=== PATIENT | female | born 1965 | race Caucasian/White ===

== ENCOUNTER → 2023-02-01 12:48 | Outpatient (BNVA) | payer OTHER, SELFPAY | PROVIDERS: PCP Internal Medicine; Visit Provider Neurological Surgery ==

== ENCOUNTER 2023-02-11 09:41 | Outpatient (REF) | payer OTHER, SELFPAY ==
--- NOTE | ~2023-02-11 | MR_ITS ---
EXAMINATION: MR LUMBAR SPINE WITHOUT CONTRAST CLINICAL INFORMATION: Neurogenic claudication COMPARISON: None TECHNIQUE: MRI of the lumbar spine was obtained using routine sequences without contrast. FINDINGS: Normal lumbar lordosis is preserved. Grade 1 anterolisthesis at L4-L5. Vertebral body heights are maintained. There is no suspicious osseous lesion. Multilevel disc desiccation with up to moderate disc height loss at L2-L3, where there are endplate Schmorl's nodes and type I Modic endplate change. Milder type I Modic endplate change at L3-L4 and L4-L5. Minor anterior osteophytic spurring is seen. Congenital spinal canal stenosis with crowding/prominence of epidural fat and superimposed degenerative changes with level by level detail as follows: T12-L1: Annular disc bulge with broad-based left central disc protrusion and mild bilateral facet arthrosis. Mild spinal canal narrowing without significant neural foraminal stenosis. L1-L2: Shallow annular disc bulge with mild bilateral facet arthrosis and ligamentum flavum thickening. No spinal canal or neural foraminal stenosis. L2-L3: Annular disc bulge with left greater than right foraminal disc protrusions, mild bilateral facet arthrosis and ligament flavum thickening and prominent/crowding of the epidural fat. Moderate spinal canal stenosis. Mild left greater than right neural foraminal stenosis. L3-L4: Annular disc bulge with advanced bilateral facet arthrosis and ligamentum flavum thickening and facet joint effusions with borderline diastasis which may reflect chronic hypermobility and can be correlated with flexion-extension views. Degenerative marrow edema/cystic change, more pronounced on the left. Severe spinal canal and subarticular zone narrowing with mass effect along the cauda equina including traversing L4 nerve roots. Moderate left and [id number]-[id number] right neural foraminal stenosis. L4-L5: Advanced bilateral facet arthrosis with ligamentum flavum thickening, small bilateral facet joint effusions with borderline diastasis which may reflect chronic hypermobility and can be correlated with flexion-extension views. Posterior disc uncovering/pseudodisc bulge. Severe spinal canal and subarticular zone stenosis with mass effect along the cauda equina, including traversing L5 nerve roots. Mild bilateral neural foraminal stenosis. L5-S1: Epidural lipomatosis mildly effaces the thecal sac. Shallow annular disc bulge with right far lateral disc osteophyte and bilateral facet arthrosis. No neural foraminal stenosis. The conus medullaris terminates at the level of L1-L2. The distal spinal cord is normal in appearance. Redundancy of the cauda equina nerve roots at L1-L2 related to multilevel high-grade spinal canal stenosis. No epidural fluid collection, hematoma, or mass. Several sacral Tarlov cysts. There is mild fatty atrophy of the paraspinal musculature. Splenomegaly measuring 12 cm. The abdominal aorta is of normal contour and caliber. MR/MR lumbar spine wo con IMPRESSION: 1. Congenital spinal canal stenosis with chronic/prominence of the epidural fat and superimposed spondylosis. Severe spinal canal stenosis at L3-L4 and L4-L5 with mass effect along the cauda equina including traversing L4 and L5 nerve roots and moderate spinal canal stenosis at L2-L3. Moderate left and [id number]-[id number] right neural foraminal stenosis at L3-L4. 2. Advanced facet arthrosis at L3-L4 and L4-L5 with joint effusions and borderline diastasis which may reflect chronic hypermobility and can be correlated with flexion-extension views. 3. Splenomegaly.
--- NOTE | ~2023-02-11 | MR_ITS ---
EXAMINATION: MR CERVICAL SPINE WITHOUT CONTRAST CLINICAL INFORMATION: Spondylosis with myelopathy, cervical region. The patient states neck pain. COMPARISON: There are no prior studies available for comparison at time of dictation. TECHNIQUE: MRI of the cervical spine was obtained using routine sequences without contrast. FINDINGS: VERTEBRAL BODIES AND PARASPINAL SOFT TISSUES: There is a mild levoscoliosis. There is reversal of the cervical lordosis in the mid cervical region, and there is a mild anterolisthesis of C3 on C4. There are sequelae of multilevel ACDF changes from C3 through C6, not well evaluated due to susceptibility artifact from the hardware. There is marked narrowing of intervertebral disc height at C6-C7 there are degenerative endplate contour changes with fatty endplate signal at this level. No compression fractures are demonstrated. Overall, marrow signal is homogenous. Accounting for artifact, the paravertebral structures are unremarkable. CERVICOMEDULLARY JUNCTION AND VISUALIZED POSTERIOR FOSSA: The craniocervical and posterior fossa structures are normal. Accounting for artifact, spinal cord signal appears normal. SPINAL LEVELS: C2-C3: There is mild bilateral facet arthropathy. There is a shallow broad-based posterior disc protrusion without cord compression or central stenosis. There are uncovertebral osteophytes and there is mild bilateral foraminal narrowing. C3-C4: There is mild right facet arthropathy. There is mild unroofing of the disc as a result of the anterolisthesis but there is no central stenosis or cord compression. The neural foramina are patent bilaterally. C4-C5: There is mild bilateral facet arthropathy. The broad-based posterior disc protrusion which effaces CSF around the cord with minimal flattening the cord. There is moderate central stenosis. There is moderate bilateral foraminal narrowing. C5-C6: The facet joints appear normal. There is a small right paracentral osteophytic spur without definite impingement on the spinal cord. There is no central stenosis or cord compression. There are uncovertebral osteophytes and there is mild bilateral foraminal narrowing. C6-C7: The facet joints appear normal. There is a broad-based posterior disc osteophyte complex which is most prominent on the left extending into the left neural foramen, and there is moderate to severe foraminal narrowing on the left. Mild foraminal stenosis is noted on the right. There is no spinal cord compression, but there is effacement of CSF around the cord and there is mild central stenosis. C7-T1: There is mild left facet arthropathy. There is a small left-sided disc osteophyte complex extending into the left neural foramen with mild foraminal narrowing. There is no central stenosis or cord compression. T1-T2: There is a broad-based posterior disc protrusion which is focally more prominent in the midline. There is no cord compression or central stenosis. The neural foramina are patent bilaterally. MR/MR cervical spine wo con IMPRESSION: 1. There are sequelae of multilevel ACDF procedures between C3 and C6. 2. At C6-C7 there is a broad-based posterior disc osteophyte complex which is most prominent on the left extending into the left neural foramen. There is moderate to severe foraminal narrowing on the left and there is mild central stenosis. 3. At C4-C5 there is a broad-based posterior disc protrusion with mild flattening of the cord and there is moderate central stenosis. There is moderate bilateral foraminal narrowing. 4. At C7-T1 there is a small left-sided disc osteophyte complex extending into the left neural foramen with mild foraminal narrowing. There is no central stenosis or cord compression. 5. Spondylitic and facet arthropathic changes are also demonstrated at other levels as described above.
== END 2023-02-11 09:42 | disposition home or self-care (01) ==
LOC: HO.MRI 09:41
PROVIDERS: PCP Internal Medicine; Visit Provider Neurological Surgery
DX: M48.062 Spinal stenosis, lumbar region with neurogenic claudication (principal); M47.12 Other spondylosis with myelopathy, cervical region; Z98.1 Arthrodesis status
CPT/HCPCS: 72141; 72148

== ENCOUNTER 2023-02-23 10:02 | Outpatient (REF) | payer OTHER, SELFPAY ==
--- NOTE | ~2023-02-23 | XR_ITS ---
EXAMINATION: XR LUMBAR SPINE CLINICAL INFORMATION: Spinal stenosis, lumbar region with neurogenic claudication. COMPARISON: MRI dated 02/11/2023. TECHNIQUE: AP and lateral views of the lumbar spine were obtained. Lateral views were obtained in flexion, extension, and neutral positions. FINDINGS: Mild sigmoid scoliosis in the lumbar spine with right convexity centered at L2 and left convexity centered at L4-L5. There is grade 2 anterolisthesis of L4 on L5 (1.3 cm) which is not appreciably changed between flexion and extension. More mild grade 1 anterolisthesis of L3 on L4 (6 mm) increases to 9 mm with flexion and is unchanged with extension. No additional spondylolisthesis. Vertebral body heights are normal. No fractures are identified. Bones are osteopenic. There is bbvb-ha-wjzbetzj multilevel degenerative disc disease which is most pronounced at L2-L3. Facet arthropathy in the lower lumbar spine is evident at most levels, most pronounced at L3-L4 and L4-L5. Gncw-xq-tpwcdckx osteoarthritis in the SI joints. Soft tissues are unremarkable. XR/XR lumbar spine 4V min IMPRESSION: 1. Grade 2 anterolisthesis of L4 on L5 without appreciable pathologic motion with flexion-extension. 2.Grade 1 anterolisthesis of L3 on L4 which increases by 3 mm with flexion. 3. Pubw-sr-cfnrjsiv multilevel degenerative disc disease and facet arthropathy in the lumbar spine. Mild sigmoid scoliosis.
== END 2023-02-23 10:03 | disposition home or self-care (01) ==
LOC: HO.HOSX 10:02
PROVIDERS: PCP Internal Medicine; Visit Provider Physician Assistant
DX: M48.062 Spinal stenosis, lumbar region with neurogenic claudication (principal)
CPT/HCPCS: 72110

== ENCOUNTER 2023-05-09 06:10 | Inpatient (IN) | payer OTHER, SELFPAY ==
--- NOTE | 2023-04-25 | ECG_ITS ---
Test Reason : preop Blood Pressure : / mmHG Vent. Rate : 063 BPM Atrial Rate : 063 BPM P-R Int : 152 ms QRS Dur : 098 ms QT Int : 430 ms P-R-T Axes : 012 -16 -04 degrees QTc Int : 440 ms Normal sinus rhythm Nonspecific T wave abnormality Moderate voltage criteria for LVH, may be normal variant ( R in aVL , [place] product ) Cannot rule out Anterior infarct , age undetermined Abnormal ECG No previous ECGs available Referred By: Bambi Youssef Electronically Signed By:TONNY GONZÁLES
[2023-04-25 12:29] VITALS: BP 126/78; PULSE 72; RESP 20; O2SAT 97; BMI 39.1
--- NOTE | 2023-04-25 12:41 | HO.ANESPROP2 ---
Documented by User: Bambi Youssef NP 05/05/23 09:10 HPI - Anesthesia Eval Consult details Narrative: 57yo F for L3-4,L4-5 Oblique Lumbar Interbody Fusion, 05/09/23 No recent ilness. Mild nasal congestion d/t allergies. No CP/SOB with minimal activity d/t back pain. Reports PONV only after ear surgery. Hx of c-spine surgery. Still with some upper extremity numbness. Hx of DVT x 1 after ankle fx. No OAC GERD well controlled with ppi Abnormal EKG reviewed by PCP. Notes no changes from previous done at their office. [facility] Active Problems Active Problems: All Active Problems (Updated 04/25/23 @ 12:21 by Evelin Pritchard RN) Cervical spondylosis with myelopathy (Acute) Status post cervical spinal fusion (Acute) Lumbar stenosis with neurogenic claudication (Acute) Past Medical History Medical History Arthritis Back pain Cervical disc disorder Chronic headache disorder DVT (deep venous thrombosis) Family history of anesthesia complication GERD (gastroesophageal reflux disease) Glaucoma History of COVID-19 History of postoperative nausea Hot flashes due to menopause HTN (hypertension) Hypothyroid IBS (irritable bowel syndrome) Lumbar stenosis Family History Family history of problems with anesthesia: Yes (Mother with awareness under anesthesthia) Surgical History Surgical History History of ankle surgery History of ear surgery History of surgery on arm Hx of cataract extraction Hx of foot surgery Hx of total knee replacement S/P cervical spinal fusion History of Problems with Anesthesia: No Social History Social History Household Members: Spouse and Family Housing: Condominium Are you a primary patient care manager to a significant other at home: No Do you presently have visiting nurse or other home services: No Patient Tobacco Use Status: Former Tobacco user Quit Date: age 32 Tobacco use type: Cigarette Years Smoked: 23 Second Hand Smoke Exposure: No service: No Meds Allergies Allergy/AdvReac Type Severity Reaction Status Date / Time codeine Allergy Severe Anaphylaxis Verified 04/25/23 12:22 levothyroxine Allergy Severe severe Verified 04/25/23 12:22 nausea, abn.labs-can only take name brand (Synthroid) hydrocodone AdvReac Intermediate Nausea Verified 04/25/23 12:22 venlafaxine AdvReac Intermediate Rx for hot Verified 04/25/23 12:24 flashes-didn't work Home Medications Medication Instructions Recorded Confirmed Last Taken Type celecoxib 100 mg capsule 100 mg PO BID 04/25/23 04/25/23 05/02/23 History dicyclomine 10 mg capsule 10 mg PO QIDACHS 04/25/23 05/09/23 05/09/23 History gabapentin 600 mg tablet 600 mg PO BEDTIME 04/25/23 04/25/23 05/08/23 History hydrochlorothiazide 25 mg tablet 25 mg PO QAM 04/25/23 04/25/23 05/08/23 History levothyroxine 137 mcg tablet 137 mcg PO DAILY 04/25/23 04/25/23 05/09/23 History (Synthroid) lisinopril 5 mg tablet 5 mg PO BEDTIME 04/25/23 04/25/23 05/08/23 History metoprolol succinate 25 mg 25 mg PO QAM 04/25/23 04/25/23 05/09/23 History tablet,extended release 24 hr mirabegron 50 mg tablet,extended 50 mg PO QAM 04/25/23 04/25/23 05/09/23 History release 24 hr (Myrbetriq) omeprazole 40 mg capsule,delayed 40 mg PO QAM 04/25/23 04/25/23 05/09/23 History release paroxetine HCl 20 mg tablet 20 mg PO QAM 04/25/23 04/25/23 05/09/23 History trospium 60 mg capsule,extended 60 mg PO QAM 04/25/23 04/25/23 05/09/23 History release 24 hr Exam Exam Date and Time: April 25, 2023 1241 Height,Weight and Vital Signs: Height 5 ft 6 in Weight 109.769 kg Last Vital Signs Pulse 72 04/25/23 12:29 Resp 20 04/25/23 12:29 BP 126/78 04/25/23 12:29 Pulse Ox 97 04/25/23 12:29 O2 Del Method Room Air 04/25/23 12:29 Airway TM Dist: >3cm Neck ROM: Limited Loose/Missing/Broken Teeth: Yes (Missing upper molars (partial doesnt fit)) Heart: RRR Lungs: CTAB Assessment and Plan Assessment Anesthesia Assessment: Anesthesia Plan Discussed and PAT Visit Final Anesthetic Review Family History of Problems with Anesthesia: Yes (Mother with awareness under anesthesthia) History of Problems with Anesthesia: No Documented by User: Shey Chavez MD 05/12/23 10:18 PMFSH Past Medical History Medical History Arthritis Back pain Cervical disc disorder Chronic headache disorder DVT (deep venous thrombosis) Family history of anesthesia complication GERD (gastroesophageal reflux disease) Glaucoma History of COVID-19 History of postoperative nausea Hot flashes due to menopause HTN (hypertension) Hypothyroid IBS (irritable bowel syndrome) Lumbar stenosis Surgical History Surgical History History of ankle surgery History of ear surgery History of surgery on arm Hx of cataract extraction Hx of foot surgery Hx of total knee replacement S/P cervical spinal fusion Social History Social History Household Members: Spouse and Family [facility] Are you a primary patient care manager to a significant other at home: No Do you presently have visiting nurse or other home services: No Patient Tobacco Use Status: Former Tobacco user Quit Date: age 32 Tobacco use type: Cigarette Years Smoked: 23 Second Hand Smoke Exposure: No service: No Meds Allergies Allergy/AdvReac Type Severity Reaction Status Date / Time codeine Allergy Severe Anaphylaxis Verified 04/25/23 12:22 levothyroxine Allergy Severe severe Verified 04/25/23 12:22 nausea, abn.labs-can only take name brand (Synthroid) hydrocodone AdvReac Intermediate Nausea Verified 04/25/23 12:22 venlafaxine AdvReac Intermediate Rx for hot Verified 04/25/23 12:24 flashes-didn't work Home Medications Medication Instructions Recorded Confirmed Last Taken Type celecoxib 100 mg capsule 100 mg PO BID 04/25/23 04/25/23 05/02/23 History dicyclomine 10 mg capsule 10 mg PO QIDACHS 04/25/23 05/09/23 05/09/23 History gabapentin 600 mg tablet 600 mg PO BEDTIME 04/25/23 04/25/23 05/08/23 History hydrochlorothiazide 25 mg tablet 25 mg PO QAM 04/25/23 04/25/23 05/08/23 History levothyroxine 137 mcg tablet 137 mcg PO DAILY 04/25/23 04/25/23 05/09/23 History (Synthroid) lisinopril 5 mg tablet 5 mg PO BEDTIME 04/25/23 04/25/23 05/08/23 History metoprolol succinate 25 mg 25 mg PO QAM 04/25/23 04/25/23 05/09/23 History tablet,extended release 24 hr mirabegron 50 mg tablet,extended 50 mg PO QAM 04/25/23 04/25/23 05/09/23 History release 24 hr (Myrbetriq) omeprazole 40 mg capsule,delayed 40 mg PO QAM 04/25/23 04/25/23 05/09/23 History release paroxetine HCl 20 mg tablet 20 mg PO QAM 04/25/23 04/25/23 05/09/23 History trospium 60 mg capsule,extended 60 mg PO QAM 04/25/23 04/25/23 05/09/23 History release 24 hr Exam Airway Mallampati Class: III Neck ROM: Poor Assessment and Plan Final Anesthetic Review NPO: Yes ASA Class: III Final Preanesthetic Review: No Changes in Pt Med Stat, Meds/Allgs Chart Reviewed, Consent Obtained/Reviewed and Anes Risks/Benef Reviewed Patient Risk: Intermediate Procedure Risk: Intermediate Anesthetic Plan Anesthetic Plan: GA Disposition: Standard PACU (pt seen, consented ,H and p reviewed prior to surgery)
[2023-04-25 14:51] LABS: Anion Gap 12 (12-20); Blood Urea Nitrogen 15 mg/dL (9-16); Calcium 10.5 mg/dL (8.4-10.2); Carbon Dioxide 27 mmol/L (22-29); Chloride 103 mmol/L (96-108); Creatinine Clr Calc Pharmacy 105.4; Estimated Glomerular Filt Rate > 60; Glucose Random 93 mg/dL (60-115); Potassium 3.9 mmol/L (3.3-5.1); Sodium 138 mmol/L (135-145)
[2023-04-26 14:08] LABS: Basophils Percent Auto 0.2 % (0-2); Eosinophils Absolute Auto 0.3 X10*3/uL (0.0-0.4); Eosinophils Percent Auto 5.6 % (0-4); Hemoglobin 14.5 g/dl (12.0-16.0); Imm Gran Abs Auto 0.02 X10*3/uL (0.00-0.03); Imm Gran Pct Auto 0.4 % (0.0-0.4); Lymphocytes Absolute Auto 1.6 X10*3/uL (1.2-4.9); Lymphocytes Percent Auto 28.7 % (20-40); MANUAL DIFF FLAG NO; Mean Corpuscular HGB Conc 34.5 g/dl (31.0-35.0); Mean Corpuscular Hemoglobin 28.5 pg (27.0-33.0); Mean Corpuscular Volume 82.5 fL (80.0-98.0); Mean Platelet Volume 9.8 fL (9.4-12.3); Monocytes Absolute Auto 0.4 X10*3/uL (0.1-1.2); Monocytes Percent Auto 6.3 % (2-11); Neutrophils Absolute Auto 3.3 x10*3/uL (2.0-8.3); Neutrophils Percent Auto 58.8 % (45-73); Platelet Count 257 X10*3/uL (160-400); Red Blood Count 5.09 X10*6/uL (4.20-5.50); Red Cell Distribution Width 13.1 % (11.0-16.0); White Blood Count 5.7 X10*3/uL (4.8-10.8)
[2023-05-09] VITALS (11 sets, daily range): BP systolic 96–131; BP diastolic 52–78; PULSE 74–91; RESP 12–18; TEMP 36.1–36.9; O2SAT 92–99; BMI 39.1
--- NOTE | ~2023-05-09 | FL_ITS ---
EXAMINATION: XR FLUOROSCOPY WITH IMAGES CLINICAL INFORMATION: Lumbar interbody fusion. COMPARISON: None available. TECHNIQUE: Performed By: Dr. Barrera. Dose: 182 mGy 3.451 mGym2 Time: 2.0 minutes Images: 4. FINDINGS: Images demonstrate posterior fusion hardware and intervertebral body disc cages from L3 to L5. FL/FL guidance in OR IMPRESSION: Fluoroscopy guidance for lumbar interbody fusion.
[2023-05-09] MEDS: Gabapentin 300 MG CAPSULE PO (06:33)
[2023-05-09] MEDS: methocarbamoL 750 MG TABLET PO (06:33)
[2023-05-09] MEDS: Lactated Ringers 1,000 ML 100 ML IVCONT (06:48)
--- NOTE | 2023-05-09 07:00 | MHC.SHP ---
Pre-Procedural Eval Section A Date of Service: 05/09/23 Section B Chief Complaint: Spinal stenosis, lumbar region with neurogenic cla Allergies: Allergies Allergy/AdvReac Type Severity Reaction Status Date / Time codeine Allergy Severe Anaphylaxis Verified 04/25/23 12:22 levothyroxine Allergy Severe severe Verified 04/25/23 12:22 nausea, abn.labs-can only take name brand (Synthroid) hydrocodone AdvReac Intermediate Nausea Verified 04/25/23 12:22 venlafaxine AdvReac Intermediate Rx for hot Verified 04/25/23 12:24 flashes-didn't work Review of Systems Sugical H&P ROS: Negative: Constitution, Cardiovascular, Respiratory, Neurological, Psychiatric, Hem-Onc, Allergic/Immunologic, Gastrointestinal, Genitourinary, Musculoskeletal, Integumentary, Endocrine and Eyes/Ears/Nose/Throat Exam Surgical H&P Exam: Not Evaluated: HEENT, Not Evaluated: Heart, Not Evaluated: Lungs, Not Evaluated: Extremities, Not Evaluated: Abdomen, Not Evaluated: Skin and Not Evaluated: Neurological Plan Diagnosis/Plan: Unchanged I have reviewed the history and physical and performed a pertinent physical examination on my patient. No changes have occurred unless specified. Plan remains the same, L4-5, L4-5 OLIF Time Spent With Patient Time: Total time managing care of this patient today _10__ minutes.
--- NOTE | 2023-05-09 07:17 | PHA.MEDREC ---
Pharmacy Consult ? Medication Reconciliation Pharmacy has completed the medication reconciliation.
[2023-05-09] MEDS: Ketorolac Tromethamine 15 MG/ML VIAL IVPUSH ×2 (13:24→18:48)
[2023-05-09] MEDS: Acetaminophen 1,000 MG/100 ML PIGGYBACK 400 MG IV ×2 (13:24→18:47)
[2023-05-09] MEDS: 0.9 % Sodium Chloride 1,000 ML 75 ML IVCONT (13:25)
--- NOTE | 2023-05-09 13:52 | W.PM.OPN ---
Operative Note Operative Note Date of Service: 05/09/23 Narrative: Preop Diagnosis: 1.) L3-4 and L4-5 spondylolisthesis with lumbar spinal stenosis and neurogenic claudication Procedure: L3-4 and L4-5 discectomy, arthrodesis and implantation cage through an anterolateral, retroperitoneal approach; posterior instrumented fusion L3-L5; allograft Consent Informed Consent was obtained for this operation. I have explained the nature, purpose and benefits of the operation. I have discussed the risks and benefit of the operation including possible complications or adverse events with patient/family. Alternative(s) were discussed with the patient with their relative benefits and risks as well as the consequences of not accepting the operation were included in obtaining consent. Surgeon: DALTON FROST MD, PHD Procedure Assisted By: Ignacio Tejada Description of Procedure This 57-year-old female suffering from back pain and bilateral leg pain due to a lumbar spondylolisthesis L3-4 and L4-5 and associated spinal stenosis. The patient was offered an oblique lumbar interbody fusion L3-4 and L4-5. The procedure complications were explained. The patient was consented. The patient was brought to the operating room and endotracheally intubated. The patient was turned in a lateral position with the left side up. Prep and drape was done followed by timeout. A small incision was made in the left lower abdominal quadrant. The muscle fascia was opened after which the 3 muscle layer was split to enter the retroperitoneal space. Dilators were docked in the anterior one third of the L4-5 disc space followed by a retractor. The retractor was opened. The L4-5 disc space was exposed. An annulotomy was done after which an elevator Rizo was used to release the disc material from its endplates and to perforate the contralateral side. A partial discectomy was done. An 8 mm height trial implant was inserted. The discectomy was completed. The endplates were prepared. An 10 x 45 mm with 6 degree lordosis 4 web cage filled with allograft was inserted into the disc space under fluoroscopic guidance. This resulted in reduction of spondylolisthesis and indirect decompression of the nervous structures. The retractor was removed and reinserted over the L3-4 level. A similar procedure was repeated after which again a 10 mm x 45 mm with 6 degree lordosis 4 web cage filled with allograft was inserted into the disc space under fluoroscopic guidance. Hemostasis was done. The incision was closed in 2 layers. Steri-Strips used to approximate incision. An OpSite with Tegaderm was used to cover the incision. This marked first part of the procedure. The patient was turned prone on the B[place]eto spine table. 2C arms were installed for fluoroscopy. Prep and drape was done followed by a second timeout. 2 paramedian incisions were made lateral from the L3-L5 pedicles. The muscle fascia was opened after which the muscle layer was split bluntly to expose the posterolateral gutter. The following steps were taken. A pediguard tap was used to create a transpedicular trajectory into the vertebral body. A K wire was placed. A specially designed instrument was advanced over the K wire to decorticate the posterolateral gutter in preparation for the posterolateral fusion. A pedicle screw was advanced over the K wire and the K wire was removed. The steps were done for the bilateral L3, L4 and L5 pedicles. A total of 6 screws were placed with a diameter of 6.5 x 40 mm. Pedicle screws were connected with 75 mm aldo bilaterally and locked down with locking caps. The extension towers were removed. The posterolateral gutter was filled with allograft to complete the posterolateral L3-L5 fusion Hemostasis was done and the incision was closed in 2 layers. Steri-Strips were used to approximate the incision. An OpSite were taken and was used to cover the incision. All sponge and needle counts were correct. Patient was extubated and transferred in stable is to recovery room. This procedure was done with the physician human resources executive assistant who assisted me an interpreter for the deaf the x-ray images, inserting the pedicle screws and closure of incisions. Anesthesia: General Estimated Blood Loss (ml): 40 Duration of Surgery: 2.5 hours Postoperative Plan: Admit to inpatient for observation Complications: None
[2023-05-09] MEDS: ceFAZolin Sodium/Dextrose,Iso 2 GM/50 ML PIGGYBACK IV ×2 (15:01→20:03)
--- NOTE | 2023-05-09 15:44 | MHC.CM.PN ---
Patient s/p surgery for spinal stenosis. Patient lives with her Spouse and Mother. She used a cane pre-op. She reports that she is independent with ADLS. A HCP has been documented and scanned into the EMR. DP home self care. Patients Spouse will provide transport home.
[2023-05-09] MEDS: HYDROmorphone HCl 1 MG/ML SYRINGE IVPUSH (16:47)
[2023-05-09] MEDS: Docusate Sodium 100 MG CAPSULE PO (20:02)
[2023-05-09] MEDS: lisinopriL 5 MG TABLET PO (20:03)
[2023-05-09] MEDS: Gabapentin 600 MG TABLET PO (20:03)
[2023-05-09] MEDS: Cyclobenzaprine HCl 5 MG TABLET PO (20:03)
[2023-05-10] MEDS: Acetaminophen 1,000 MG/100 ML PIGGYBACK 400 MG IV (00:41)
[2023-05-10] MEDS: Ketorolac Tromethamine 15 MG/ML VIAL IVPUSH ×2 (00:41→05:16)
[2023-05-10] MEDS: 0.9 % Sodium Chloride 1,000 ML 75 ML IVCONT (02:15)
[2023-05-10] MEDS: ceFAZolin Sodium/Dextrose,Iso 2 GM/50 ML PIGGYBACK IV (02:18)
[2023-05-10 03:37] VITALS: BP 96/53; PULSE 89; RESP 16; TEMP 36.1; O2SAT 94
[2023-05-10] MEDS: Levothyroxine Sodium 112 MCG, Levothyroxine Sodium 25 MCG 137 MCG PO (05:22)
[2023-05-10] MEDS: Omeprazole 40 MG CAPSULE.DR PO (05:34)
[2023-05-10 07:46] VITALS: BP 91/53; PULSE 96; RESP 17; TEMP 36.1; O2SAT 93
[2023-05-10 08:42] VITALS: BP 91/53; PULSE 96; O2SAT 93
[2023-05-10] MEDS: Mirabegron 50 MG TAB.ER.24H PO (08:50)
[2023-05-10] MEDS: hydroCHLOROthiazide 25 MG TABLET PO (08:50)
[2023-05-10] MEDS: Metoprolol Succinate ER 25 MG TAB.ER.24H PO (08:50)
[2023-05-10] MEDS: HYDROmorphone HCl 2 MG TABLET PO ×2 (08:50→12:03)
[2023-05-10] MEDS: Docusate Sodium 100 MG CAPSULE PO (08:50)
[2023-05-10] MEDS: PARoxetine HCL 20 MG TABLET PO (08:50)
--- NOTE | 2023-05-10 09:18 | P.DS_ITS ---
DS: Providers Provider Date of Service: 05/10/23 Date of admission: 05/09/23 06:10 Primary care physician: Kelly Ruiz MD DS: Diagnosis Discharge Diagnosis (1) Status post cervical spinal fusion: Status: Acute DS: Summary Time Spent with Patient Time attestation: Total time managing care of this patient today ____ minutes. Discharge coordination time: Less than 30 minutes Quality: Safe Use of Opioids Does Pt have an Active Cancer Diagnosis on the Problem List?: No Quality: Stroke Does the patient have a stroke diagnosis?: No Physical Exam Vital Signs: Vital Signs: Last Vital Signs Temp 96.9 F 05/10/23 07:46 Pulse 96 05/10/23 08:42 Resp 17 05/10/23 07:46 BP 91/53 L 05/10/23 08:42 Pulse Ox 93 05/10/23 08:42 O2 Del Method Room Air 05/10/23 07:46 O2 Flow Rate 2 05/09/23 20:00 BMI result Body Mass Index 39.1 Discharge Plan Discharge Anticipated Discharge Date/Time: 05/10/23 09:19 Patient Disposition: Home, Self-Care Discharge Diagnosis: S/P L3-4 and L4-5 OLIF Referrals: Kelly Hawkins MD [Primary Care Provider] - 1 Week Discharge Medications: New hydromorphone [Dilaudid] 2 mg tablet 2 mg PO Q6H PRN (Reason: moderate-severe pain) Qty: 30 0RF Rx Instructions: Partial Fill upon patient request. acetaminophen 500 mg tablet 1,000 mg PO Q8H Qty: 42 0RF Continued levothyroxine [Synthroid] 137 mcg tablet 137 mcg PO DAILY gabapentin 600 mg tablet 600 mg PO BEDTIME omeprazole 40 mg capsule,delayed release(DR/EC) 40 mg PO QAM paroxetine HCl 20 mg tablet 20 mg PO QAM lisinopril 5 mg tablet 5 mg PO BEDTIME hydrochlorothiazide 25 mg tablet 25 mg PO QAM metoprolol succinate 25 mg tablet extended release 24 hr 25 mg PO QAM celecoxib 100 mg capsule 100 mg PO BID dicyclomine 10 mg capsule 10 mg PO QIDACHS Myrbetriq 50 mg tablet extended release 24 hr 50 mg PO QAM trospium 60 mg capsule,extended release 24hr 60 mg PO QAM Discharge Orders: Discharge Order (Routine); Ordered 05/10/23 Ordered By: Alireza Lira Diet: Advance to usual diet Activity on Discharge: As tolerated Stand Alone Forms: Patient Portal Discharge page Activity Restrictions/Additional Instructions: After your spinal surgery we ask you to observe the following restric tions/guidelines: Activity: With lumbar fusion surgery it is normal to have days in the first couple of weeks where you have increased leg pain. This usually lasts 1-2 days and self resolves with the continuation of medication. Attempt to stay mobile and continue activity as tolerated. It is normal to feel some discomfort as you increase your activity, but that will improve with time. We ask you avoid heavy lifting or activities that cause pain. As a general rule, 8lbs is a safe limit for lifting right after surgery. Walk as much as you feel comfortable but not to exhaustion. You will feel extra tired the first few days after surgery. Stay well hydrated. It is OK to walk up and down stairs You may return to driving when you are off narcotics (such as vicodin, oxycodone, dilaudid, etc), and you are back to normal functional capacity. If you have any concerns please check with office before driving. Return to work is specific to each patient and each surgery, so please speak with your doctor/PA at first follow up. Please bring paperwork such as FMLA at that time if you need it filled out. Medications: It is recommended that you take Tylenol 500 mg every 4 hours for the 1st week postoperatively, alongside ibuprofen 600 mg every 8 hours. We will also be prescribing gabapentin 300 mg to be taken every 8 hours for the 1st month postoperatively. We will give you a short supply of narcotics after surgery (usually one weeks worth). Please use this for breakthrough pain that is refractory to the Tylenol ibuprofen and gabapentin. If you need more please call the office but do not use more than prescribed. You will need to give our office 48 hours notice if you need narcotics refilled and we do not fill narcotics on weekends or evenings. If you are on a narcotic, it is a good idea to take a stool softener such as colace or senna to avoid constipation If you take blood thinner such as aspirin, Plavix, Coumadin, Effient, Eliquis etc for conditions such as Afib, DVT, Pulmonary embolus, coronary disease, stents etc please speak with your surgeon about specific details as to when you can resume these medications. You can resume NSAIDs on post op day 1 (eg: Motrin, Naproxen, etc). Follow up: Please call the office, , after surgery to arrange a 3 week follow up for wound check. Wound Care: You may remove your dressing on the first day after surgery. You may leave open to air. Please do not remove the steri strips underneath. they will fall off on their own in one week. IT IS NORMAL FOR THE WOUND TO OOZE OR BE BLOODY FOR A FEW DAYS AFTER SURGERY. IF THIS HAPPENS JUST PLACE NEW DRESSING OVER IT TO AVOID STAINING CLOTHES. You may shower on post op day # 1 We ask that you do not let the water soak the wound. If it does get wet, just towel dry lightly. Please do not scrub your incision or place any type of chemical/ointment on the wound. No tub baths, pools or jacuzzis for one month. If you have any leaking or redness from your wound, or fevers, please call office Care Plan Goals: Return to activity as tolerated. Health Concerns: None. Plan of Treatment: Follow-up in clinic in 2 weeks. Assessment: Stable.
--- NOTE | 2023-05-10 09:32 | HO.NEUROPN_ITS ---
Neurosurgery Operative Note Date of Service: 05/10/23 Narrative: POD: 1 Procedure: ?L3-4 and L4-5 OLIF Lisa was seen this morning on [address] [place] [address]. She reports she is up and walking around with the help of physical therapy. She is otherwise doing well. She feels her symptoms are much better than pre-operatively. She still reports mild pain in her lateral right thigh, which may be a result of the L sided OLIF approach. This was explained to her. She is able to achieve good relief with pain medication. She is voiding well and tolerating diet. Afebrile, vital signs stable. Full strength in bilateral lower extremities. Sensation grossly intact. Back / left lateral dressings have some staining without signs of hematoma. No active sanguineous drainage. Area is dry. Plan: Patient meets criteria to be medically discharged home. This was discussed with Dr. Barrera. She will f/u in clinic in 2 weeks.
--- NOTE | 2023-05-10 09:35 | MHC.CM.PN ---
Patient is discharged home today Self-care. Her will provide transportation home.
[2023-05-10 09:36] VITALS: BP 91/53; PULSE 96; O2SAT 93
--- NOTE | 2023-05-10 11:26 | HO.POSTANES ---
Post Anesthesia Evaluation Post Anesthesia Evaluation Date of Service: 05/10/23 Vital Signs: Vital Signs Temp Pulse Resp BP Pulse Ox O2 Del Method 05/10/23 09:36 96 91/53 L 93 05/10/23 08:42 96 91/53 L 93 05/10/23 07:46 96.9 F 96 17 91/53 L 93 Room Air 05/10/23 03:37 96.9 F 89 16 96/53 L 94 Room Air Anesthesia: General Endotracheal-GETA Mental Status: Awake Pain Control: Satisfactory Nausea/Vomiting: None Hydration: Adequate Anesthesia-Related Issues: No Anes. Related Issues
== END 2023-05-10 12:44 | disposition home or self-care (01) | DRG 304 ==
LOC: HO.SSSA 06:11 → HO.S3 12:26
PROVIDERS: Nurse Practitioner; Admitting Provider Neurological Surgery; PCP Internal Medicine; Visit Provider Neurological Surgery
PROC: 0SG10A0 Fusion of 2 or more Lumbar Vertebral Joints with Interbody Fusion Device, Anterior Approach, Anterior Column, Open Approach (ICD-10-PCS; principal; 2023-05-09 07:30)
DX: M48.062 Spinal stenosis, lumbar region with neurogenic claudication (principal); M43.16 Spondylolisthesis, lumbar region; Z79.890 Hormone replacement therapy; Z79.899 Other long term (current) drug therapy
CPT/HCPCS: 36415; 80048; 85025; 85027; 86850; 86900; 86901; 93005; 97116; 97162; 97530; C1713; J0131; J0690; J1100; J1170; J1885; J2371; J2405; J3010; L8699

== ENCOUNTER → 2023-05-09 06:10 | Outpatient (BNV) | payer OTHER, SELFPAY | PROVIDERS: Admitting Provider Neurological Surgery; PCP Internal Medicine; Visit Provider Neurological Surgery | DX: M48.062 Spinal stenosis, lumbar region with neurogenic claudication (principal); M43.16 Spondylolisthesis, lumbar region | CPT/HCPCS: 20930; 22558; 22585; 22612; 22614; 22840; 22853; 99024 ==

== ENCOUNTER 2023-05-30 13:48 | Outpatient (AMB) | payer OTHER, SELFPAY ==
--- NOTE | 2023-05-30 13:51 | HO.SPINEOV ---
Intake Intake Visit Reasons: 3 weeks post op Intake Note: Ms. Marley is here today for her 1st post-op visit. 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 She reports that she has had a difficult course with healing postoperatively. She states that she has been in moderate pain since her surgery, with only mild relief of her pain with tylenol, gabapentin, and hydromorphone. She does also continue to endorse some aching/numbness in her left anterior thigh as previously documented in her neurosurgery progress note from the hospital. This aching/numbness is inferior to her OLIF incision site. Thankfully she does report that she has been able to complete a large majority of her ADLs at home. She does state that she thinks she is getting better every day, but also rates her discomfort is the same as before surgery. She reports that her pain is the worst when she has to ambulate, but has been trying to ambulate through the pain in order to remain active. She was encouraged to continue to do this and to spend less time sitting/lying down it more time attempting to get up and remain active. Full strength in UE / LE. Sensation grossly intact, but some nonspecific numbness report in the left anterior thigh as stated above. Anterior and posterior incision sites are clean, dry, and well healing. We will follow-up with the patient in 6 weeks for her 2nd postoperative visit. At that time we will get x-rays to review with the patient. Orders: Orders XR lumbar spine 4V min 06/20/23 Z98.1 - Arthrodesis status Coding Level of Care Code Global (27954) Diagnoses S/P lumbar spinal fusion Z98.1
== END 2023-05-30 14:15 | disposition home or self-care (01) ==
PROVIDERS: PCP Internal Medicine; Visit Provider Physician Assistant
DX: Z98.1 Arthrodesis status (principal)
CPT/HCPCS: 99024

== ENCOUNTER → 2023-05-30 13:48 | Outpatient (BNVA) | payer OTHER, SELFPAY | PROVIDERS: PCP Internal Medicine; Visit Provider Physician Assistant ==

== ENCOUNTER 2023-06-20 11:14 | Outpatient (REF) | payer OTHER, SELFPAY | END 2023-06-20 11:15 | disposition home or self-care (01) | LOC: HO.HOSX 11:14 | PROVIDERS: Visit Provider Physician Assistant | DX: Z13.89 Encounter for screening for other disorder (principal) ==

== ENCOUNTER 2023-07-11 12:54 | Outpatient (REF) | payer OTHER, SELFPAY ==
--- NOTE | ~2023-07-11 | XR_ITS ---
EXAMINATION: XR LUMBOSACRAL SPINE WITH OBLIQUES CLINICAL INFORMATION: Status post arthrodesis COMPARISON: Are 02/23/2003 before fusion TECHNIQUE: AP, both oblique, and lateral views of the lumbar spine. Lateral view of the lumbosacral junction. FINDINGS: Patient is status post posterior fusion at the level of L3-L5 with vertical rods and pedicle sclerosis. The disc spacers inserted to the level of L3-L4 and L4-L5. Flexion and extension views reveal mild instability of L3-L4 disc spacer migrated 4 mm anterior. There is grade 1 anterior listhesis of L3 over L4 and diminished on extension views. There is narrowing of L2-L3 intervertebral disc space and there is mild dextroscoliosis. Sacroiliac joints unremarkable. XR/XR lumbar spine 4V min IMPRESSION: Mild instability of the disc spacer at the level of L3-L4. Grade 1 anterolisthesis of L3 over L4.
== END 2023-07-11 12:55 | disposition home or self-care (01) ==
LOC: HO.HOSX 12:54
PROVIDERS: Visit Provider Physician Assistant
DX: Z98.1 Arthrodesis status (principal)
CPT/HCPCS: 72110

== ENCOUNTER 2023-07-11 13:08 | Outpatient (AMB) | payer OTHER, SELFPAY ==
--- NOTE | 2023-07-11 13:23 | A.SPINEOV_ITS ---
Intake Intake Visit Reasons: 2nd post op with x rays Intake Note: Ms. Marley is her today for her 2nd post-op visit. Field Service Representative Required: No Allergies codeine Allergy (Severe, Verified 04/25/23 12:22) Anaphylaxis levothyroxine Allergy (Severe, Verified 04/25/23 12:22) severe nausea, abn.labs-can only take name brand (Synthroid) hydrocodone Adverse Reaction (Intermediate, Verified 04/25/23 12:22) Nausea venlafaxine Adverse Reaction (Intermediate, Verified 04/25/23 12:24) Rx for hot flashes-didn't work Assessment & Plan Assessment & Plan (1) S/P lumbar spinal fusion: Code(s): Z98.1 - Arthrodesis status Plan Procedure: L3-4 and L4-5 OLIF Lisa comes in today for her 2nd postoperative visit. She reports she is happy with the surgery and does feel that she is doing better than she was pre- operatively. Unfortunately she does still have some unspecified numbness/ sensation of deficit in her left thigh below her lateral incision site. She was again encouraged that this typically self resolves and was reassured that she can call the office at any time if she feels she needs to be re-evaluated for this issue. After we discussed it at length she did not seem significantly concerned. She reports that she has been increasing her activity slowly, and most recently has been caring for her mother again, going outside to get the mail, and going for small short walks. We reviewed her x-rays that she had completed today, and compared them to her intraoperative x-rays. No significant changes noted, instrumentation remains in place. No neurological deficits. Mobility is intact, although she does still have somewhat of an antalgic gait. Incision sites are closed, well healed, with no signs of drainage. Lisa was informed that we no longer need to follow up with her regularly. She was encouraged to call the office if she would like to be seen in the future for any concerns/complaints. She is agreeable to this plan, and will begin trying to increase her exercise /walking gradually as her healing progresses. Coding Level of Care Code Global (61987) Diagnoses S/P lumbar spinal fusion Z98.1
== END 2023-07-11 13:58 | disposition home or self-care (01) ==
PROVIDERS: PCP Internal Medicine; Visit Provider Physician Assistant
DX: Z98.1 Arthrodesis status (principal)
CPT/HCPCS: 99024

== ENCOUNTER 2025-07-22 12:58 | Outpatient (AMB) | payer OTHER, SELFPAY ==
--- NOTE | 2025-07-22 13:02 | A.PHYSOV_ITS ---
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 She has a history of L3-L4 and L4-L5 discectomies, arthrodesis, and posterior instrumented fusion, which were performed through an anterior lateral retroperitoneal approach. A lumbosacral spine MRI conducted on February 11, 2023, revealed severe spinal stenosis at the L3-L4 and L4-L5 levels with mass effect. The patient received a caudal epidural injection on June 07, 2024, which provided 70% relief at the time of the follow-up visit. She also underwent multiple greater trochanteric bursa injections, with the most recent one on April 22, 2025. A repeat caudal epidural injection was administered on May 16, 2025, which improved her back pain but did not significantly alleviate hip pain. She would like to repeat her GT bursa injections today. She denies any change in bowel and bladder habits. She denies any fever or chills. She ambulates with a single-point cane. Pain Description - Chronic pain involving multiple joints - Severe spinal stenosis at L3-L4 and L4-L5 levels causing mass effect - Back pain improved with caudal epidural injection, but hip pain persists Results - Imaging: Lumbosacral spine MRI on February 11, 2023, showed severe spinal stenosis at L3-L4 and L4-L5 levels with mass effect. [facility] Medical History (Updated 07/22/25 @ 13:30 by Taurus More DO) Lumbar radiculitis Trochanteric bursitis of both hips Family history of anesthesia complication History of postoperative nausea Hot flashes due to menopause GERD (gastroesophageal reflux disease) IBS (irritable bowel syndrome) Back pain Glaucoma DVT (deep venous thrombosis) Chronic headache disorder Arthritis HTN (hypertension) Hypothyroid History of COVID-19 Lumbar stenosis Cervical disc disorder Surgical History History of ear surgery Hx of foot surgery History of surgery on arm Hx of total knee replacement History of ankle surgery S/P cervical spinal fusion Hx of cataract extraction Social History Household Members: Spouse and Family [facility] Are you a primary intensive care specialist to a significant other at home: No Do you presently have visiting nurse or other home services: No Patient Tobacco Use Status: Former Tobacco user Tobacco use type: Cigarette Years Smoked: 23 Second Hand Smoke Exposure: No service: No Review of Systems Narrative Review of Systems - Musculoskeletal: Reports chronic pain in multiple joints, particularly in the back and hips. Denies any change in bowel and bladder habits. Denies fever or chills. Denies uncontrolled depression or suicidal ideation. Physical Exam Exam Exam: Physical Exam Vital Signs: BMI result Body Mass Index 37.1 Office Procedures AMB Hip Injection AMB Hip Injection Procedure Details: Patient was placed in a lateral recumbent position with the right side up. Point of maximum tenderness over greater trochanter was located and marked. Skin was cleansed with alcohol. 3.5 in 22 gauge spinal needle was introduced percutaneously and advanced toward the greater trochanter. Once in place total volume of 5 cc containing 40 mg of triamcinolone and 2% lidocaine was injected after negative aspiration for blood and without resistance. The identical procedure was repeated on the opposite side. Patient tolerated procedure very well without complications. Hip (Bursa) Injection - : Bilateral All charges added?: Procedure code (CPT) selection complete Office Meds Kenalog 40 mg/mL suspension for injection Performing Provider: Taurus Mroe DO Performing Location: [facility] Administered by: Taurus More DO on 07/22/25 13:24 Dose Route Admin Location Dispensed Lot Number Expiration Date [employer] 80 mg intrabursal 2 mL [id number] [employer] Total Dispensed Waste 2 mL 0 % lidocaine (PF) 20 mg/mL (2 %) injection solution Performing Provider: Taurus More DO Performing Location: [facility] Administered by: Taurus More DO on 07/22/25 13:24 Dose Route Admin Location Dispensed Lot Number Expiration Date [facility] [employer] 160 mg intrabursal 8 mL [id number] Total Dispensed Waste 8 mL 0 % Assessment & Plan Assessment & Plan (1) Lumbar stenosis with neurogenic claudication: Code(s): M48.062 - Spinal stenosis, lumbar region with neurogenic claudication Category: Medical (2) S/P lumbar spinal fusion: Code(s): Z98.1 - Arthrodesis status Category: Surgical (3) Trochanteric bursitis of both hips: Code(s): M70.61 - Trochanteric bursitis, right hip; M70.62 - Trochanteric bursitis, left hip Category: Medical (4) Lumbar radiculitis: Code(s): M54.16 - Radiculopathy, lumbar region Category: Medical Plan Pain Management - Affect: Pain impacts daily activities, particularly in the hips. - Analgesia: Caudal epidural injection provided 70% relief for back pain. - Activities of Daily Living: Hip pain persists, affecting mobility. Plan Patient was informed and verbally consented to the use of an ambient scribe for clinic note documentation during this visit. 1. Chronic Pain Involving Multiple Joints The patient continues to experience chronic pain involving multiple joints, primarily affecting the back and hips. A caudal epidural injection was administered on June 07, 2024, providing 70% relief for back pain, but hip pain persists. Further hip injections are planned to address the persistent pain in the hips. 2. Severe Spinal Stenosis At L3-L4 And L4-L5 Levels The patient has severe spinal stenosis at the L3-L4 and L4-L5 levels, confirmed by MRI on February 11, 2023 for which she had surgery. This condition contributes to her chronic back pain, which has been partially alleviated by caudal epidural injections. Discussion Notes During the visit, we discussed the patient's ongoing chronic pain management, focusing on the effectiveness of previous interventions such as caudal epidural injections. We also planned for further hip injections to address the persistent pain in the hips, ensuring the patient understood the procedure and consented to it. Proceed with repeat bilateral GT bursa injections today. Risks and benefits of the procedure were discussed with the patient. Potential alternative measures were also discussed. Patient understands that the procedure is completely elective. Potential side effects associated with injectable medications were discussed. All questions were answered to the patient's satisfaction. Patient Instructions - Continue with prescribed pain management regimen. - Schedule and attend hip injection appointments as planned. Orders: Orders AMB Hip/Bursa Injection Today M70.61 - Trochanteric bursitis, right hip, M70.62 - Trochanteric bursitis, left hip Coding Level of Care Code Est Pt Level 4 (71052) Complex EM visit Add On G2211 Diagnoses Lumbar stenosis with neurogenic claudication M48.062 S/P lumbar spinal fusion Z98.1 Trochanteric bursitis of both hips M70.61; M70.62 Lumbar radiculitis M54.16 CPT Codes AMB Hip Injection - Hip/Bursa Injection - 84957: Bilateral ([id number])
[2025-07-22 13:03] VITALS: BMI 37.1
--- OUTSIDE RECORDS SUMMARY | 2025-07-23 04:25 | XMS_ITS | Encounter Summary ---
Author Organization [facility] [place] [address] Care Team Providers Care Equipment Operating Engineer Name Role Phone Kelly Garay MD Primary Care Prov ider Reason for Visit * Reason Onset Date Comments Medication Reaction 07/15/2025 Wegovy Encounter Details Date Type Department Care Team ([facility] Contact Info) Description 07/15/2025 Telephone Bariatric Surgery - [address] [place] [address] Nicky Canas PA [address] [place] [phone] Social History Tobacco Use Types Packs/Day Years Used Date Smoking Tobacco: Former Cigarettes 0.5 Q uit: 09/03/1994 Smokeless Tobacco: Never Alcohol Use Standard Drinks/Week Comments Yes 0 (1 standard drink = 0.6 oz pur e alcohol) Housing Instability Answer Date Recorde d Are you worried that in the next 2 months you may not have stable housing? No 08/26/2024 Food Access & Nutrition Answer Date Rec orded Do you have access to a vari ety of food including fruits and vegetables? Yes 08/26/2024 Access to Healthcare Answer Date Record ed Within the last 3 months, ho w many times did you visit the emergency department for your medical care? 0 08/13/2024 Health Literacy Answer Date Recorded How often do you need to hav e someone help you when you read instructions, pamphlets, or other written material from your doctor or pharmacy? Never 08/26/2024 Caregiver: How often do you need to have someone help you when you read instructions, pamphlets, or other written material from your doctor or pharmacy? Not on file 08/26/2024 Financial Risk Answer Date Recorded How hard is it for you to pa y for the very basics like food, housing, medical care, and air conditioning / heating? Not very hard 08/26/2024 Transportation Answer Date Recorded Has the lack of transportati on kept you from meetings, work, or from getting things needed for daily living? No Has the lack of transportati on kept you from medical appointments or from getting medications? No 08/26/2024 Social Isolation Answer Date Recorded How often do you feel lonely or isolated from th ose around you? Never 08/26/2024 Food Risk Answer Date Recorded Within the past 12 months we worried whether our food would run out before we got money to buy more. Never true 08/26/2024 Within the past 12 months th e food we bought just didn't last and we didn't have money to get more. Never true 08/26/2024 Dependent Care Answer Date Recorded Do you need help finding or paying for care for your loved ones. For example, childbirth and infant care teacher or elderly care for an older adult? No 08/26/2024 Education Answer Date Recorded Do you think completing more education or training, like finishing a GED, going to college, or learning a trade, would be helpful for you? No 08/26/2024 Employment and Income Answer Date Recor ded During the last four weeks, have you been actively looking for work? No 08/26/2024 Living Situation Answer Date Recorded What is your living situation? Unrecognized valu e 08/26/2024 Comments No Sex and Gender Information Value Date Recorded Sex Assigned at Female 01/15/2025 11:05 AM EDT Legal Sex Female 1:12 PM EDT Gender Identity Female 01/15/2025 11:05 AM EDT Sexual Orientation Not on file documented as of this encounter Progress Notes * Casper Ragsdale MA - 07/22/2025 3:40 PM EST Pa submitted via RightFax to [facility] * Joie Norris - 07/15/2025 1:56 PM EST Patient called to let Cher know that she is experiencing a lot os nausea and just cannot function. Patient would like Cher to give her a call documented in this encounter Plan of Treatment Upcoming Encounters Date Type Department Care Team (Late st Contact Info) Description 09/19/2025 1:00 PM EST Office Visit Adult Medicine [facility] [address] [place] [address] Kelly Garay MD [address] [place] [address] 10/16/2025 11:15 AM EST Office Visit Bariatric Surgery - [address] [place] [address] Nicky Canas PA [address] [place] [phone] documented as of this encounter Visit Diagnoses Not on filedocumented in this encounter Additional Health Concerns Assessment Noted Time PHQ-9 Depression Total Score: 0 11/29/19 25 11:07 AM EDT documented as of this encounter Care Teams Equipment Operating Engineer Relationship Specialty Start Date End Date Kelly Garay MD [address] [place] [address] PCP - General Internal Medicine 07/29/24 documented as of this encounter
--- OUTSIDE RECORDS SUMMARY | 2025-07-23 04:25 | XMS_ITS | Clinical Summary ---
Author Organization [facility] [place] Address [address] [place] [address] Care Team Providers Care Commercial [employer] Lender Name Role Phone Kelly Garay MD Primary Care Prov ider Allergies Active Allergy Reactions Criticality Noted Date Comments Codeine 10/28/2005 Hydrocodone-Acetaminophe n 10/28/2005 DIZZY, GI UPSET Levothyroxine Sodium 11/14/2011 Nausea, dizziness, shakiness, hair loss Venlafaxine Hcl Nausea And Vomiting 05/20/2016 Nausea Medications celecoxib (CeleBREX) 100 mg capsule Take 1 Capsule by mouth daily as needed for Pain. Not to be taken daily. 4 Active fezolinetant 45 mg tablet Take 45 mg by mouth 1 (one) time each day. 90 tablet 3 5 Active gabapentin (NEURONTIN) 600 mg tablet TAKE 1 TABLET BY MOUTH EVERYDAY AT BEDTIME 90 tablet 3 5 Active metoprolol succinate (TOPROL-XL) 25 mg 24 hr tablet TAKE 1 TABLET BY MOUTH EVERY DAY 90 tablet 1 5 Active Synthroid 137 mcg tablet TAKE 1 TABLET BY MOUTH EVERY DAY 90 tablet 1 5 Active hydroCHLOROthi azide (HYDRODIURIL) 25 mg tablet TAKE 1 TABLET BY MOUTH EVERY DAY 90 tablet 1 5 Active atorvastatin (LIPITOR) 10 mg tablet TAKE 1 TABLET BY MOUTH EVERY DAY 90 tablet 1 5 Active dicyclomine (BENTYL) 10 mg capsule Take 1 capsule (10 mg total) by mouth 2 (two) times a day. 180 each 3 5 Active citalopram (CeleXA) 20 mg tablet Take 1 tablet (20 mg total) by mouth 1 (one) time each day. 90 tablet 3 5 Active Veozah 45 mg tabletIndicati ons:Menopausal symptoms Take 45 mg by mouth 1 (one) time each day. 30 tablet 11 5 Active semaglutide (Wegovy) 0.5 mg/0.5 mL injection pen Inject 0.5 mg under the skin every 7 (seven) days. 4 mL 5 Active omeprazole (PriLOSEC) [address] capsule TAKE 1 CAPSULE BY MOUTH EVERY DAY 90 capsule 1 5 Active lisinopriL (PRINIVIL,ZEST RIL) 10 mg tablet Take 1 tablet (10 mg total) by mouth 1 (one) time each day. 90 tablet 5 Active trospium 60 mg capsule,extend ed release 24hrIndication s:Overactive bladder Take 1 capsule (60 mg total) by mouth 1 (one) time each day before breakfast. 90 capsule 1 5 025 vibegron (Gemtesa) 75 mg tablet tabletIndicati ons:Overactive bladder Take 1 tablet (75 mg total) by mouth 1 (one) time each day. 90 each 1 5 025 lisinopriL (PRINIVIL,ZEST RIL) 5 mg tablet Take 2 tablets (10 mg total) by mouth 1 (one) time each day. 180 tablet 1 5 025 Discontinued omeprazole (PriLOSEC) [address] capsule TAKE 1 CAPSULE BY MOUTH EVERY DAY 90 capsule 1 5 025 Discontinued semaglutide (Wegovy) 0.5 mg/0.5 mL injection pen Inject 0.5 mg under the skin every 7 (seven) days. 4 mL 5 025 Discontinued lisinopriL (PRINIVIL,ZEST RIL) 5 mg tablet TAKE 2 TABLETS BY MOUTH 1 TIME EACH DAY. 180 tablet 5 025 Discontinued Active Problems Problem Noted Date Diagnosed Date History of COVID-19 09/15/2021 Arthritis of carpometacarpal (CMC) joint of left thumb 09/06/2021 Numbness and tingling in both hands 09/06/2021 Arthritis of carpometacarpal (CMC) joint of righ t thumb 02/05/2021 Carpal tunnel syndrome of right wrist 02/05/2021 Hand joint laxity, right 02/05/2021 Chronic headache disorder 02/28/2020 Overview (06/21/2024): Onset teens. Hip pain, bilateral 09/30/2012 Overview (06/21/2024): Luis Antonio Lipoma 03/18/2011 Glaucoma, narrow-angle 12/17/2010 Seasonal allergies 12/15/2009 Low back pain 03/11/2009 Overview (06/21/2024): Luis Antonio Assessment & Plan (08/14/2024 11:43 AM EST): Currently on gabapentin 600 mg at night, she does not tolerate the medication during the day. She also takes celecoxib and Tylenol. She follows regularly with Dr. More, recently completed physical therapy. Orders: Lipid panel with reflex to direct LDL; Future Basic metabolic panel; Future Thyroid stimulating hormone; Future IBS (irritable bowel syndrome) 09/25/2008 Overview (06/21/2024): Diagnosis as a teenager, abdominal pain, diarrhea alternating with constipation. GERD (gastroesophageal reflux disease) 8 Cervicalgia 04/30/2007 Overview (06/21/2024): Herniated C 6-7; T 1-2 Essential hypertension, benign 10/28/2005 Assessment & Plan (08/14/2024 11:43 AM EST): Well controlled on Lisinopril 5mg, Metoprolol 25mg, hctz 25mg. Encouraged to follow a low salt diet. Will continue same regimen. Will follow up in 6 months. Orders: Lipid panel with reflex to direct LDL; Future Basic metabolic panel; Future Thyroid stimulating hormone; Future Hirsutism 10/28/2005 Hypothyroidism 10/28/2005 Assessment & Plan (08/14/2024 11:43 AM EST): Last TSH within normal limits. Patient currently on levothyroxine 137 mcg a day. Will continue same dose. Will recheck levels and adjust if needed. Orders: Thyroid stimulating hormone; Future Obesity, unspecified 10/28/2005 Resolved Problems Problem Noted Date Diagnosed Date Resolved Date Morbid obesity with BMI of 4 0.0-44.9, adult ([facility] V24, [facility] V28) 03/19/2025 07/07/2025 Herpes simplex virus (HSV) infection 07/04/2006 03/19/2025 Overview (06/21/2024): IMO update Encounters Date Type Department Care Team Description 07/15/2025 Telephone Bariatric Surgery [address] [phone] Nicky Canas PA 07/07/2025 2:00 PM EST Office Visit Bariatric Surgery [address] [phone] Nicky Canas PA Class 2 severe obesity due to excess calories with serious comorbidity and body mass index (BMI) of 38.0 to 38.9 in adult (Primary Dx) 06/20/2025 Results Follow-Up Adult Medicine [address] [phone] Kelly Garay MD 06/18/2025 12:53 PM EDT - 06/18/2025 11:59 PM EDT Hospital Encounter Radiology Department - [address] [phone] Encounter for screening mammogram for breast cancer Discharge Disposition: Home or Self Care 06/12/2025 2:20 PM EDT Consult Gastroenterology [address] [place] [phone] Durga Perez MD Irritable bowel syndrome with both constipation and diarrhea (Primary Dx) 06/02/2025 Telephone Bariatric Surgery [facility] [address] [facility] [address] [place] [phone] Nicky Canas PA 05/29/2025 Telephone Bariatric Surgery [facility] [address] [facility] [address] [place] [address] Nicky Canas PA 05/14/2025 Telephone Bariatric Surgery [facility] [address] [facility] [address] [place] [phone] Nicky Canas PA from Last 3 Months Immunizations Immunization Administration Dates Next Due Td Tetanus diptheria (Tdvax) 7yo and older 10/05 Tdap Tetanus diptheria acell ular pertussis (Boostrix; Adacel) 7yo and older 08/26/2008 Surgical History Surgery Date Site/Laterality Comments OTHER SURGICAL HISTORY PROCEDURE: HISTORICAL EAR SURGERY; COMMENT: Tympanoplasty tube Left; [place] OTHER SURGICAL HISTORY 1986 PROCEDURE: OR RPR EPIGASTRIC HERNIA REDUCIBLE SPX TUBAL LIGATION PROCEDURE: HISTORICAL TUBAL LIGATION ANKLE SURGERY Right PROCEDURE: HISTORICAL ANKLE SURGERY FOOT SURGERY Left PROCEDURE: HISTORICAL FOOT SURGERY TOTAL KNEE ARTHROPLASTY 06/07/2018 Right PROCEDURE: HISTORICAL TOTAL KNEE REPLACE; COMMENT: Cassandra TOTAL KNEE ARTHROPLASTY 12/2017 Left PROCEDURE: HISTORICAL TOTAL KNEE REPLACE; COMMENT: Cassandra UPPER GASTROINTESTINAL ENDOSCOPY 12/30/2011 PROCEDURE: OR UPPER GI ENDOSCOPY PERFORMED; COMMENT: normal UPPER GASTROINTESTINAL ENDOSCOPY 03/20/2020 PROCEDURE: OR UPPER GI ENDOSCOPY PERFORMED; COMMENT: Normal on current treatment with omeprazole 20 mg twice a day. HAND SURGERY 02/10/2021 Right PROCEDURE: HISTORICAL HAND SURGERY; COMMENT: Right thumb trapeziectomy and interpositional arthroplasty using FCR tendon, right thumb MP fusion, right endoscopic carpal tunnel release HAND SURGERY 12/08/2021 Left PROCEDURE: HISTORICAL HAND SURGERY; COMMENT: (Left thumb trapeziectomy and interpositional arthroplasty using FCR tendon, left MP joint fusion thumb, left endoscopic carpal tunnel release, excision of cyst from PIP joint left index) with Dr. Deleon CARPAL TUNNEL RELEASE Bilateral PROCEDURE: HISTORICAL CARPAL TUNNEL REL BACK SURGERY 06/08/2023 PROCEDURE: HISTORICAL BACK SURGERY; COMMENT: lumbar fusion, [place] Medical History Medical History Date Comments Unspecified hypothyroidism 10/28/2005 DX:Un specified hypothyroidism Obesity, unspecified 10/28/2005 DX:Obesity, unspecified Hirsutism 10/28/2005 DX:Hirsutism Cervicalgia 04/30/2007 DX:Cervicalgia; COMMENT: Herniated C 6-7; T 1-2 GERD (gastroesophageal reflu x disease) 08/26/2008 DX:GERD (gastroesophageal re flux disease) IBS (irritable bowel syndrome) 09/25/2008 D X:IBS (irritable bowel syndrome); COMMENT: Diagnosis as a teenager, abdominal pain, diarrhea alternating with constipation. Essential hypertension, benign 10/28/2005 D X:Essential hypertension, benign Glaucoma, narrow-angle 12/17/2010 DX:Glauco ma, narrow-angle Neuropathy DX:Neuropathy History of DVT (deep vein thrombosis) 09/15/2014 DX:History of DVT (deep vein thrombosis); COMMENT: S/P RIGHT ANKLE FRACTURE SURGERY 08/10/14 [facility] Chronic headache disorder 02/28/2020 DX:Chr onic headache disorder; COMMENT: Onset teens. Herpes simplex virus (HSV) infection 07/04/2006 IMO update Morbid obesity with BMI of 4 0.0-44.9, adult ([facility] V24, [facility] V28) 03/19/2025 Family History Medical History Relation Name Comments Depression Daughter Coronary artery disease Father Stroke Maternal Grandfather Coronary artery disease Maternal Grandmother with aneursym Diabetes Mother Hypertension Mother Heart attack Mother's side Cousin Stroke Other Mat GGM Bipolar disorder Son Breast cancer Neg Hx Colon cancer Neg Hx Ovarian cancer Neg Hx Relation Name Status Comments Daughter Alive Father estranged Maternal Grandfather Maternal Grandmother Mother Alive Mother's side Cousin Alive Other Paternal Grandfather Paternal Grandmother Son Alive Social History Tobacco Use Types Packs/Day Years Used Date Smoking Tobacco: Former Cigarettes 0.5 Q uit: 09/03/1994 Smokeless Tobacco: Never Tobacco Cessation:Counseling Given: Not Answered Alcohol Use Standard Drinks/Week Comments Yes 0 [...] care for your loved ones. For example, child care cook or elderly care for an older adult? [...] AM EDT Sexual Orientation Not on file Obstetrics History * This document contains information received from the source organization and may not represent a complete record from that organization. Para Term AB IAB SAB Ectopic Multiple Livin g Live Births 3 2 2 2 2 Date Outcome GA Total Labor Labor/2nd/3rd Weight Sex Type Anes PTL Hortensia A1 A5 Name Clin Term Vag-S pont Living Term Vag-S pont Living Last Filed Vital Signs Vital Sign Reading Time Taken Comments Blood Pressure 139/87 07/07/2025 2:03 PM EST Pulse 84 07/07/2025 2:03 PM EST Temperature 36.3 C (97.3 F) 03/19/2025 12:44 PM EDT Respiratory Rate 16 03/19/2025 12:44 PM EDT Oxygen Saturation 98% 06/12/2025 2:24 PM EDT Inhaled Oxygen Concentration - - Weight 107 kg (235 lb 9.6 oz) 07/07/2025 2:03 PM EST Height 167.6 cm (5' 6 ) 07/07/2025 2:03 PM EST Body Mass Index 38.03 07/07/2025 2:03 PM EST Plan of Treatment Upcoming Encounters Date Type Department Care Team (Late st Contact Info) Description 09/19/2025 1:00 PM EST Office Visit Adult Medicine [address] [phone] Kelly Garay MD [address] [place] [address] 10/16/2025 11:15 AM EST Office Visit Bariatric Surgery - [address] [place] [phone] Nicky Canas PA [address] [place] [phone] Health Maintenance Due Date Last Done Comments Pneumococcal Vaccine: 50+ Years (1 of 1 - PCV) 2014 RSV Immunization Adult Patients (1 - Risk 50-74 years 1-dose series) 2014 Zoster Vaccines (1 of 2) 2014 HIV Screening 06/01/2021 Social Influencers of Health Screening 08/26/2025 08/26/2024 Hypertension/CHF/CAD Annual BMP Blood Test 11/19/2025 11/19/2024, 04/19/2024, 04/19/2024, Additional history exists Breast Cancer Screening 06/18/2026 06/18/20, 06/07/2024, 06/07/2024, Additional history exists Colorectal Cancer Screening: FIT-DNA (Cologuard) 03/03/2027 03/03/2024, 03/03/2024 Cervical Cancer Screening: HPV 06/07/2027 06/07/2022 DTaP,Tdap,and Td Vaccines (3 - Td or Tdap) 10/05/2028 10/05/2018, 08/26/2008 Cholesterol Screening (Lipid Panel) 11/19/2029 11/19/2024, 02/06/2024, 02/06/2024 Hepatitis C Screening Completed 02/12/2014 COVID-19 Vaccine Discontinued 04/11/2021, 03/14/2021 Depression Screening Completed 11/28/2024 HIB Vaccines Aged Out No longer eligi ble based on patient's age to complete this topic HPV Vaccines Aged Out No longer eligi ble based on patient's age to complete this topic Hepatitis A Vaccines Aged Out No long er eligible based on patient's age to complete this topic Hepatitis B Vaccines Aged Out No long er eligible based on patient's age to complete this topic IPV Vaccines Aged Out No longer eligi ble based on patient's age to complete this topic Influenza Vaccine Discontinued MMR Vaccines Aged Out No longer eligi ble based on patient's age to complete this topic Meningococcal ACWY Vaccine Aged Out N o longer eligible based on patient's age to complete this topic Meningococcal B Vaccine Aged Out No l onger eligible based on patient's age to complete this topic RSV Immunization Patients Under 20 months Aged Out No longer eligible based on patient's age to complete this topic Varicella Vaccines Aged Out No longer eligible based on patient's age to complete this topic Procedures Procedure Name Priority Date/Time Associated Diagnosis Comments MG MAMMO DIGITAL SCREENING W GEREMIAS BILAT Routine 06/18/2025 1:14 PM EDT Encounter for screening mammogram for breast cancer BASIC METABOLIC PANEL Routine 11/19/2024 11:51 AM EDT Essential hypertension, benign Chronic bilateral low back pain without sciatica Mixed hyperlipidemia LIPID PANEL WITH REFLEX TO DIRECT LDL Routine 11/19/2024 11:51 AM EDT Essential hypertension, benign Chronic bilateral low back pain without sciatica Mixed hyperlipidemia HM HPV Routine 06/07/2022 HM HEPATITIS C SCREENING Routine 02/12/2014 from Last 3 Months or Most Recently Relevant to Health Maintenance Results * MG Mammo Digital Screening w Geremias bilat (06/18/2025 1:14 PM EDT) Anatomical Region Laterality Modality Breast Bilateral Mammography 06/19/2025 3:40 PM EDT Impressions 06/19/2025 4:36 PM EDT No mammographic evidence for malignancy. BI-RADS CATEGORY: 1 - NEGATIVE RECOMMENDATION: Screening bilateral mammogram is recommended in 1 year. Mammo Location: [facility], [address] [place] [address], [id number], . -------- FINAL REPORT -------- Dictated By: Kylah Bush Dictated Date: 06/19/2025 15:40 ET Assigned Physician: Kylah Bush Reviewed and Electronically Signed By: Kylah Bush Signed Date: 06/19/2025 16:36 ET Workstation ID: [id number] Transcribed By: Self Edit Transcribed Date: 06/19/2025 15:46 ET Narrative 06/19/2025 4:36 PM EDT Bilateral screening mammogram. CLINICAL: 59 years old, Female, routine annual exam. COMPARISON: Prior mammograms, latest from 06/07/2024. TECHNIQUE: Bilateral MLO and CC views were obtained digitally with 2 D C views and 3-D mammogram (digital breast tomosynthesis). Computer-aided detection was utilized in evaluation of this exam (CAD). FINDINGS: There is no evidence of suspicious mass or architectural distortion. No worrisome calcifications are evident. There has been no significant change from prior exam(s). BREAST DENSITY: B - There are scattered areas of fibroglandular density. Procedure Note Kylah Bush MD - 06/19/2025 Bilateral screening mammogram. CLINICAL: 59 years old, Female, routine annual exam. COMPARISON: Prior mammograms, latest from 06/07/2024. TECHNIQUE: Bilateral MLO and CC views were obtained digitally with 2 D Cviews and 3-D mammogram (digital breast tomosynthesis). Computer-aideddetection was utilized in evaluation of this exam (CAD). FINDINGS: There is no evidence of suspicious mass or architectural distortion. Noworrisome calcifications are evident. There has been no significantchange from prior exam(s). BREAST DENSITY: B - There are scattered areas of fibroglandular density. IMPRESSION: No mammographic evidence for malignancy. BI-RADS CATEGORY: 1 - NEGATIVE RECOMMENDATION: Screening bilateral mammogram is recommended in 1 year. Mammo Location: [facility], [address] [place] [address], [id number], . -------- FINAL REPORT -------- Dictated By: Kylah Bush Dictated Date: 06/19/2025 15:40 ET Assigned Physician: Kylah Bush Reviewed and Electronically Signed By: Kylah Bush Signed Date: 06/19/2025 16:36 ET Workstation ID: [id number] Transcribed By: Self Edit Transcribed Date: 06/19/2025 15:46 ET us Kelly Garay MD IM BI PROCEDURES Final Result * (ABNORMAL) Lipid panel with reflex to direct LDL (11/19/2024 11:51 AM EDT) Cholesterol 147 0 - 200 mg/dL LAB CHEMISTRY METHOD 11/19/2024 3:13 PM EDT [facility] Triglycerides 163(H) 0 - 150 mg/dL LAB CHEMISTRY METHOD 11/19/2024 3:13 PM EDT [facility] HDL 50 >=40 mg/dL LAB CHEMISTRY METHOD 11/19/2024 3:13 PM EDT [facility] LDL Calculated 64 0 - 100 mg/dL LAB CHEMISTRY METHOD 11/19/2024 3:13 PM EDT [facility] VLDL Cholesterol Carrillo 32.6 mg/dL LAB CHEMISTRY METHOD 11/19/2024 3:13 PM EDT [facility] Non HDL Chol. (LDL+VLDL) 97 <145 mg/dL LAB CHEMISTRY METHOD 11/19/2024 3:13 PM EDT [facility] Chol/HDL Ratio 2.9 0.0 - 4.4 LAB CHEMISTRY METHOD 11/19/2024 3:13 PM EDT [facility] Blood Venous blood specimen / Unknown Venipuncture / Unknown 11/19/2024 11:51 AM EDT 11/19/2024 11:51 AM EDT us Kelly Garay MD LAB BLOOD ORDERABL ES Final Result [facility] [address] [place] [address], [place] [phone] * (ABNORMAL) Basic metabolic panel (11/19/2024 11:51 AM EDT) Sodium 139 133 - 145 mmol/L LAB CHEMISTRY METHOD 11/19/2024 3:12 PM EDT [facility] Potassium 4.4 3.5 - 5.5 mmol/L LAB CHEMISTRY METHOD 11/19/2024 3:12 PM EDT [facility] Chloride 102 96 - 110 mmol/L LAB CHEMISTRY METHOD 11/19/2024 3:12 PM EDT [facility] CO2 30 21 - 32 mmol/L LAB CHEMISTRY METHOD 11/19/2024 3:12 PM EDT [facility] Anion Gap 7 3 - 11 LAB CHEMISTRY METHOD 11/19/2024 3:12 PM EDT [facility] Glucose 107(H) 70 - 100 mg/dL LAB CHEMISTRY METHOD 11/19/2024 3:12 PM EDT [facility] BUN 13 5 - 25 mg/dL LAB CHEMISTRY METHOD 11/19/2024 3:12 PM EDT [facility] Creatinine 0.77 0.50 - 1.10 mg/dL LAB CHEMISTRY METHOD 11/19/2024 3:12 PM EDT [facility] eGFR 88 >=60 mL/min/1. 73m2 LAB CHEMISTRY METHOD 11/19/2024 3:12 PM EDT [facility] Comment:Calculation based on the Chronic Kidney Disease Epidemiology Collaboration (CKD-EPI) equation refit without adjustment for race. BUN/Creatinine Ratio 16.9 LAB CHEMISTRY METHOD 11/19/2024 3:12 PM EDT [facility] Calcium 10.1 8.5 - 10.5 mg/dL LAB CHEMISTRY METHOD 11/19/2024 3:12 PM EDT [facility] Blood Venous blood specimen / Unknown Venipuncture / Unknown 11/19/2024 11:51 AM EDT 11/19/2024 11:51 AM EDT Kelly Garay MD LAB BLOOD ORDERABL ES Final Result [facility] [address] [place] [address], * Cervical Cancer Screening: HPV (06/07/2022) [facility] Cervical Cancer Screening: HPV Abstracted ,negative Historical Provider HEALTH MAINTENANCE Final Result * Hepatitis C Screening (02/12/2014) [facility] Hepatitis C Screening Abstracted Historical Provider HEALTH MAINTENANCE Final Result from Last 3 Months or Most Recently Relevant to Health Maintenance Insurance [facility] Care Teams Commercial Real Estate Lender Relationship Specialty Start Date End Date Kelly Garay MD [address] [place] [phone] PCP - General Internal Medicine 07/29/24
--- OUTSIDE RECORDS SUMMARY | 2025-07-23 04:25 | XMS_ITS | Clinical Summary ---
Author Organization [facility] Address [address] [place] [id number] Phone Care Team Providers Care Structural Engineering Drafting Officer Name Role Phone Kelly Hawkins MD Primary Care Prov ider Allergies Active Allergy Reactions Criticality Noted Date Comments Codeine 10/28/2005 Hydrocodone-Acetaminophen 10/28/2005 DIZZY, GI UPSET Levothyroxine Sodium 11/14/2011 Nausea, dizziness, shakiness, hair loss Medications GEMTESA 75 mg tablet Take 1 tablet by mouth daily. 4 Active lisinopril (PRINIVIL,ZESTR IL) 5 MG tablet Take 1 tablet by mouth daily. 4 Active metoprolol succinate (TOPROL-XL) 25 MG 24 hr tablet Take 1 tablet by mouth daily. 4 Active omeprazole (PRILOSEC) 40 MG capsule Take 1 capsule by mouth daily. 4 Active SYNTHROID 137 mcg tablet Take 1 tablet by mouth daily. 4 Active hydroCHLOROthia zide 25 MG tablet Take 1 tablet by mouth daily. 4 Active gabapentin (NEURONTIN) 600 MG tablet take 1 tablet by mouth everyday at bedtime Active dicyclomine (BENTYL) 10 MG capsule Take 10 mg by mouth. 3 Active citalopram (CELEXA) 20 MG tablet Take 1 tablet by mouth daily. 3 Active celecoxib (CELEBREX) 100 MG capsule Take 100 mg by mouth. 4 Active EAR DROPS, CARBAMIDE PEROXIDE, 6.5 % otic solution Place 5 drops in ear(s). 4 Active atorvastatin (LIPITOR) 10 MG tablet Take 1 tablet by mouth daily. 4 Active albuterol 90 mcg/actuation inhalerIndicati ons:Bronchitis Inhale 2 puffs into the lungs every 4 (four) hours as needed for wheezing or shortness of breath/dyspnea . 8 g 4 Active Active Problems No known active problems Social History Tobacco Use Types Packs/Day Years Used Date Smoking Tobacco: Never Assessed Education Answer Date Recorded Are you interested in more education? Not on francesca e 05/14/2024 Are you concerned about learning? Not on file 05/14/2024 No 05/14/2024 No 05/14/2024 Digital Access Answer Date Recorded No 05/14/2024 No 05/14/2024 Reliable internet access at home? Not on file 05/14/2024 Device with a working camera? Not on file Comments Unknown Sex and Gender Information Value Date Recorded Sex Assigned at Not on file Legal Sex Female 1:42 PM EDT Gender Identity Not on file Sexual Orientation Not on file Last Filed Vital Signs Vital Sign Reading Time Taken Comments Blood Pressure 136/86 05/14/2024 2:27 PM EDT Pulse 92 05/14/2024 2:27 PM EDT Temperature - - Respiratory Rate 16 05/14/2024 2:27 PM EDT Oxygen Saturation 97% 05/14/2024 2:27 PM EDT Inhaled Oxygen Concentration - - Weight - - Height - - Body Mass Index - - Plan of Treatment Health Maintenance Due Date Last Done Comments CREATININE LEVEL 1964 LIPID PANEL 1964 POTASSIUM LEVEL 1964 TSH LEVEL 1964 DEPRESSION SCREENING 1976 SMOKING Hx and SMOKELESS TOBACCO SCREENING 1977 HEPATITIS C SCREENING 1982 HIV ONE-TIME SCREENING (18-6 5 YEARS) 1982 PAP SMEAR 1985 MAMMOGRAM 2004 COLOGUARD 2009 COLONOSCOPY 2009 COLORECTAL CANCER SCREENING 2009 FIT TEST 2009 FOBT 2009 SIGMOIDOSCOPY 2009 VIRTUAL COLONOSCOPY 2009 PNEUMOCOCCAL VACCINES (50+ years) (1 of 1 - PCV) 2014 ZOSTER VACCINES (1 of 2) 2014 INFLUENZA VACCINE (#1) 2025 COVID-19 VACCINE (3 - 2024-2 6 season) 2025 04/11/2021, 03/14/2021 Adult Td,Tdap Booster 10/05/2028 10/05/2018 , 08/26/2008 RSV VACCINE (1 - 1-dose 75+ series) 2039 HEPATITIS A VACCINES Aged Out No long er eligible based on patient's age to complete this topic HIB VACCINES Aged Out No longer eligi ble based on patient's age to complete this topic MENINGOCOCCAL VACCINES (ACWY) Aged Out No longer eligible based on patient's age to complete this topic MENINGOCOCCAL VACCINES (B) Aged Out N o longer eligible based on patient's age to complete this topic Medical Devices Not on file [place] [address] [place] [address] [place], [place] [address] [place], [place] [address]O [facility] Care Teams Structural Engineering Drafting Officer Relationship Specialty Start Date End Date Kelly Hawkins MD [address] [place] [id number] PCP - General Internal Medicine 05/14/24 Additional Source Comments The information contained in this document represents components of the legal health record. It is not the complete legal health record.[facility]
--- OUTSIDE RECORDS SUMMARY | 2025-07-23 04:25 | XMS_ITS | Encounter Summary ---
Author Organization [facility] [place] [address] Care Team Providers Care [employer] Principal Name Role Phone Kelly Garay MD Primary Care Prov ider Encounter Details Date Type Department Care Team (Late st Contact Info) Description 06/20/2025 Results Follow-Up Adult [address] [phone] Kelly Garay MD [address] [place] [address] Social History Tobacco Use Types Packs/Day Years [...] do you feel lonely or isolated from ose around you? Never 08/26/2024 Food Risk [...] care for your loved ones. For example, children's zoo caretaker or elderly care for an older adult? [...] on file documented as of this encounter Plan of Treatment Upcoming Encounters Date Type Department Care Team (Late st Contact Info) Description 09/19/2025 1:00 PM EST Office Visit Adult [address] [phone] Kelly Garay MD [address] [place], [place] 10/16/2025 11:15 AM EST Office Visit Bariatric Surgery - [address] [place] [phone] Nicky Canas PA [address] [place] [phone] documented as of this encounter Visit Diagnoses Not on filedocumented in this encounter Additional Health Concerns Assessment Noted Time PHQ-9 Depression Total Score: 0 11/29/19 11:07 AM EDT documented as of this encounter Care Teams [employer] Principal Relationship Specialty Start Date End Date Kelly Garay MD [address] [place], [place] PCP - General Internal Medicine 07/29/24 documented as of this encounter
--- OUTSIDE RECORDS SUMMARY | 2025-07-23 04:25 | XMS_ITS | Clinical Summary ---
Author Organization [facility] Address [address] [place] [address] Care Team Providers Care Electromechanical Inspector Name Role Phone Kym Randall Primary Care Provider Social History Tobacco Use Types Packs/Day Years Used Date Smoking Tobacco: Never Assessed Sex and Gender Information Value Date Recorded Sex Assigned at Not on file Gender Identity Not on file Sexual Orientation Not on file Plan of Treatment Health Maintenance Due Date Last Done Comments Hepatitis C Screening 1964 COVID-19 Vaccine (#1) 01/21/1965 Depression Screening 1976 Preventative Health Evaluation 1982 Cervical Cancer Screening (P ap Smear) 1985 Colon Cancer Screening (Colonoscopy) 2009 Breast Cancer Screening (Mammogram) 2014 Shingrix-Zoster Vaccine (1 of 2) 2014 DTap / Tdap / Td (2 - Td or Tdap) 08/26/2018 008 Influenza Vaccine (#1) 2025 RSV Adult > 60+ Yrs or Pregn ant (1 - 1-dose 75+ series) 2039 Hepatitis B Vaccines Aged Out No long er eligible based on patient's age to complete this topic Pneumococcal Vaccine Aged Out No long er eligible based on patient's age to complete this topic RSV Ped < 20 months Aged Out No longe r eligible based on patient's age to complete this topic Care Teams Electromechanical Inspector Relationship Specialty Start Date End Date Tonia Kymfabiola Easton [address] [place], [place] [address]elsa [place] [id number] PCP - General Internal Medicine 11/03/20
--- OUTSIDE RECORDS SUMMARY | 2025-07-23 04:26 | XMS_ITS ---
Author Name [facility] Organization Unknown History of Medication Use Medication Directions Dispensed Refills Start Date End Date Stat us omeprazole (PriLOSEC) [address] capsule TAKE 1 CAPSULE BY MOUTH EVERY DAY 10/11/2024 active atorvastatin (LIPITOR) 10 mg tablet TAKE 1 TABLET BY MOUTH EVERY DAY 10/10/2024 active hydroCHLOROthiazide (HYDRODIURIL) 25 mg tablet TAKE 1 TABLET BY MOUTH EVERY DAY 10/02/2024 active Synthroid 137 mcg tablet TAKE 1 TABLET B Y MOUTH EVERY DAY 10/01/2024 active citalopram (CeleXA) 20 mg tablet TAKE 1 TABLET BY MOUTH EVERY DAY 09/30/2024 active lisinopriL (PRINIVIL,ZESTRIL) 5 mg tablet TAKE 1 TABLET BY MOUTH EVERY DAY 09/03/2024 active metoprolol succinate (TOPROL-XL) 25 mg 24 hr tablet TAKE 1 TABLET BY MOUTH EVERY DAY 09/03/2024 active vibegron (Gemtesa) 75 mg tablet tablet Take 1 tablet (75 mg total) by mouth 1 (one) time each day. 07/19/2024 active celecoxib (CeleBREX) 100 mg capsule Take 1 Capsule by mouth daily as needed for Pain. Not to be taken daily. 02/13/2024 active gabapentin (NEURONTIN) 600 mg tablet TAKE 1 TABLET BY MOUTH EVERYDAY AT BEDTIME 02/09/2024 active dicyclomine (BENTYL) 10 mg capsule TAKE 1 CAPSULE BY MOUTH 4 TIMES DAILY (BEFORE MEALS AND NIGHTLY). 06/20/2023 active Allergies Allergen Reaction Severity Comment Documented Date Source Statu s VENLAFAXINE HCL NAUSEA AND VOMITING Nausea 05/20/2016 [facility] active LEVOTHYROXINE SODIUM Nausea, dizziness, shakiness, hair loss 11/14/2011 [facility] active HYDROCODONE-ACETAM INOPHEN DIZZY, GI UPSET 10/28/2005 [facility] active CODEINE [facility] Problems Problem Status Onset Date Problem Type Date of Resolution Source Herpes simplex virus (HSV) infection active 2006-07-04 ProblemAct [facility] Arthritis of carpometacarpal (CMC) joint of left thumb active 2021-09-06 ProblemAct [facility] Hip pain, bilateral active 2012-09-30 ProblemAct [facility] Encounter for screening mammogram for breast cancer active EncounterDiagnosisAct C [facility] Arthritis of carpometacarpal (CMC) joint of right thumb active 2021-02-05 ProblemAct [facility] History of COVID-19 active 2021-09-15 ProblemAct [facility] Low back pain active 2009-03-11 ProblemAct [facility] Hand joint laxity, right active 2021-02-05 ProblemAct [facility] Lipoma active 2011-03-18 ProblemAct [facility] IBS (irritable bowel syndrome) active 2008-09-25 ProblemAct [facility] GERD (gastroesophageal reflux disease) active 2008-08-26 ProblemAct [facility] Hypothyroidism active 2005-10-28 ProblemAct [facility] Hirsutism active 2005-10-28 ProblemAct [facility] Essential hypertension, benign active 2005-10-28 ProblemAct [facility] Glaucoma, narrow-angle active 2010-12-17 ProblemAct [facility] Chronic headache disorder active 2020-02-28 ProblemAct [facility] Obesity, unspecified active 2005-10-28 ProblemAct [facility] Numbness and tingling in both hands active 2021-09-06 ProblemAct [facility] Cervicalgia active 2007-04-30 ProblemAct [facility] Carpal tunnel syndrome of right wrist active 2021-02-05 ProblemAct [facility] Seasonal allergies active 2009-12-15 ProblemAct [facility] Immunizations Vaccine Date Source Lot Number Status Td Tetanus diptheria (Tdvax) 7yo and older 10/05/2018 [facility] [id number] completed Tdap Tetanus diptheria acell ular pertussis (Boostrix; Adacel) 7yo and older 08/26/2008 [facility] [id number] completed
== END 2025-07-22 13:28 | disposition home or self-care (01) ==
LOC: HO.HPHYS 12:58
PROVIDERS: PCP Internal Medicine; Visit Provider Physical Medicine & Rehabilitation
DX: M48.062 Spinal stenosis, lumbar region with neurogenic claudication (principal); Z98.1 Arthrodesis status; M70.61 Trochanteric bursitis, right hip; M70.62 Trochanteric bursitis, left hip; M54.16 Radiculopathy, lumbar region
CPT/HCPCS: 20610

== ENCOUNTER → 2025-07-22 12:58 | Outpatient (BNVA) | payer OTHER, SELFPAY | PROVIDERS: PCP Internal Medicine; Visit Provider Physical Medicine & Rehabilitation | DX: M70.61 Trochanteric bursitis, right hip (principal); M70.62 Trochanteric bursitis, left hip; M54.16 Radiculopathy, lumbar region; Z98.1 Arthrodesis status; M48.062 Spinal stenosis, lumbar region with neurogenic claudication; G89.29 Other chronic pain | CPT/HCPCS: 20610; J2003; J3301 ==